=== PATIENT | female | born 1995 | race African-American/Black ===

== ENCOUNTER 2024-07-26 16:48 | Inpatient (IN) | payer MEDICARE, MEDICAID ==
[~2024-07-26] VITALS: Ht 167.6 cm; Wt 102.1 kg
[~2024-07-26 16:48] MED LIST: FERROUS SULFATE; FLUC150T46 PO; NITR-87 PO
[2024-07-26 16:50] VITALS: O2SAT 96
[2024-07-26] MEDS: METHYLPREDNISOLONE SOD SUCC 125MG/2ML (ACT-O-VIAL) IV ONE (17:30)
[2024-07-26 18:08] LABS: BASOPHILS % 0.3 % (0.0-2.0); DIFFERENTIAL COMMENT 0; EOSINOPHILS % 0.7 % (0.0-5.0); HEMOGLOBIN. 11.1 g/dL (12.0-16.0); LYMPHOCYTES % 26.7 % (20.0-50.0); MEAN CORPUSCULAR HGB CONC 31.7 g/dL (31.0-37.0); MEAN CORPUSCULAR VOLUME 72.6 fL (81.0-99.0); MEAN PLATELET VOLUME 8.7 fl (7.4-10.4); MONOCYTES % 11.9 % (2.0-8.0); NEUTROPHILS % 60.4 % (40.0-76.0); PLATELET 255 x1000/uL (130-400); RED BLOOD CELL COUNT 4.82 mill/uL (4.2-5.4); RED CELL DISTRIBUTION WIDTH 17.1 % (11.6-14.6)
[2024-07-26 18:17] LABS: CHLORIDE 108 mEq/L (98-107); POTASSIUM 3.6 mEq/L (3.5-5.1); SODIUM 139 mEq/L (136-145)
[2024-07-26 18:18] LABS: CALCIUM 9.6 mg/dL (8.7-10.4); CARBON DIOXIDE 24 mEq/L (21-32)
[2024-07-26 18:23] LABS: CREATININE 0.6 mg/dL (0.6-1.0); GLUCOSE 86 mg/dL (70-105); UREA NITROGEN BLOOD 8 mg/dL (9-23)
[2024-07-26 18:31] LABS: TROPONIN I HIGH SENSITIVITY < 4 ng/L (3.0-34)
[2024-07-26 18:45] LABS: HCG SCREEN NEGATIVE
[2024-07-26] MEDS: ONDANSETRON HCL 4MG/2ML INJ IV ONE (19:03)
[2024-07-26] MEDS: MORPHINE SULFATE 2 MG/ML INJ (NOT FOR IM USE) IV ONE (19:03)
[2024-07-26] MEDS ORDERED: MAGNESIUM/ALUMINUM HYDROXIDE/SIMETHICONE 30ML UDC PO PRN (20:15)
[2024-07-26] MEDS ORDERED: ONDANSETRON HCL 4MG/2ML INJ IV PRN (20:15)
[2024-07-26] MEDS ORDERED: GUAIFENESIN 200MG/10ML SUGAR FREE UDC PO PRN (20:15)
[2024-07-26] MEDS ORDERED: IPRATROPIUM/ALBUTEROL 0.5-3(2.5)MG/3ML NEB HHN PRN (20:15)
[2024-07-26] MEDS ORDERED: CLONIDINE 0.1MG TABLET PO PRN (20:15)
[2024-07-26] MEDS ORDERED: ACETAMINOPHEN 325MG TABLET PO PRN ×2 (20:15)
[2024-07-26 20:46] LABS: IRON 130 ug/dL (50-170)
[2024-07-26 20:49] LABS: TOTAL IRON BINDING CAPACITY 246 ug/dl (250-425)
[2024-07-26 20:52] LABS: FERRITIN 6 ng/mL (10-291); FOLIC ACID (FOLATE) SERUM 11.54 ng/mL (>5.38); VITAMIN B12 SERUM 776 pg/mL (211-911)
[2024-07-26 20:56] LABS: TROPONIN I HIGH SENSITIVITY < 4 ng/L (3.0-34)
[2024-07-26] MEDS ORDERED: METHYLPREDNISOLONE SOD SUCC 125MG/2ML (ACT-O-VIAL) IV SCH (21:00)
[2024-07-26] MEDS: GABAPENTIN 300MG CAPSULE PO SCH (21:32)
[2024-07-26] MEDS: FAMOTIDINE 20MG TABLET PO SCH (21:32)
[2024-07-26] MEDS ORDERED: METHYLPREDNISOLONE IV SCH (22:00)
[2024-07-26] MEDS ORDERED: DEXT 5% IV SCH (22:00)
[2024-07-26] MEDS ORDERED: WATER IV SCH (22:00)
[2024-07-26 22:19] LABS: TROPONIN I HIGH SENSITIVITY < 4 ng/L (3.0-34)
[2024-07-26 22:20] LABS: CREATINE KINASE 52 IU/L (34-145)
[2024-07-26] MEDS: HYDROCODONE/ACETAMINOPHEN 5/325MG TABLET PO PRN (22:38)
[2024-07-26 23:00] VITALS: BP 125/89; PULSE 85; RESP 20; TEMP 36.2512
[2024-07-26] MEDS: CHOLECALCIFEROL (D3) 1000 UNIT TABLET PO SCH (23:48)
[2024-07-27 00:01] VITALS: BP 117/59; PULSE 86; RESP 20; TEMP 36.114; O2SAT 96
[2024-07-27 04:00] VITALS: BP 128/83; PULSE 84; RESP 20; TEMP 36.72516; O2SAT 96
[2024-07-27 06:58] LABS: CLARITY URINE CLOUDY (CLEAR); COLOR URINE YELLOW (YELLOW); GLUCOSE URINE NEGATIVE (NEGATIVE); KETONES URINE TRACE (NEGATIVE); LEUKOCYTE ESTERASE URINE 1+ (NEGATIVE); NITRITE URINE NEGATIVE (NEGATIVE); OCCULT BLOOD URINE NEGATIVE (NEGATIVE); PH URINE 5.5 (4.5-8.0); PROTEIN URINE NEGATIVE (NEGATIVE); SPECIFIC GRAVITY URINE 1.027 (1.005-1.030)
[2024-07-27 07:03] LABS: HEMATOCRIT. 36.9 % (36.0-48.0); HEMOGLOBIN. 11.6 g/dL (12.0-16.0); MEAN CORPUSCULAR HEMOGLOBIN 22.5 pg (28.0-32.0); MEAN CORPUSCULAR HGB CONC 31.4 g/dL (31.0-37.0); MEAN CORPUSCULAR VOLUME 71.7 fL (81.0-99.0); MEAN PLATELET VOLUME 9.2 fl (7.4-10.4); PLATELET 277 x1000/uL (130-400); RED BLOOD CELL COUNT 5.14 mill/uL (4.2-5.4); RED CELL DISTRIBUTION WIDTH 17.6 % (11.6-14.6); WHITE BLOOD COUNT 8.7 x1000/uL (4.5-11.0)
[2024-07-27 07:09] LABS: CREATINE KINASE 48 IU/L (34-145)
[2024-07-27 07:13] LABS: CALCIUM 10.1 mg/dL (8.7-10.4); CHLORIDE 108 mEq/L (98-107); POTASSIUM 4.3 mEq/L (3.5-5.1); SODIUM 138 mEq/L (136-145)
[2024-07-27 07:14] LABS: CARBON DIOXIDE 20 mEq/L (21-32)
[2024-07-27 07:19] LABS: CREATININE 0.7 mg/dL (0.6-1.0); GLUCOSE 121 mg/dL (70-105); TRIGLYCERIDE 51 mg/dL (0-150); UREA NITROGEN BLOOD 9 mg/dL (9-23)
[2024-07-27 07:20] LABS: *AMPHETAMINES SCREEN URINE NEGATIVE (NEGATIVE); *BARBITURATES SCREEN URINE NEGATIVE (NEGATIVE); *BENZODIAZEPINES SCREEN URINE NEGATIVE (NEGATIVE); *COCAINE SCREEN URINE NEGATIVE (NEGATIVE); METHADONE URINE SCREEN NEGATIVE (NEGATIVE); OPIATES URINE SCREEN PRESUMPTIVE POSITIVE (NEGATIVE)
[2024-07-27 07:20] LABS: LDL CHOLESTEROL 103 mg/dL (5-100)
[2024-07-27 07:21] LABS: CANNABINOID URINE SCREEN NEGATIVE (NEGATIVE); ECSTASY MDMA SCREEN URINE NEGATIVE (NEGATIVE); PHENCYCLIDINE URINE SCREEN NEGATIVE (NEGATIVE)
[2024-07-27 07:21] LABS: CHOLESTEROL 172 mg/dL (<200); HDL CHOLESTEROL 61 mg/dL (>65); T4 FREE 1.06 ng/dL (0.89-1.76)
[2024-07-27 07:22] LABS: ALANINE AMINOTRANSFERASE 8 IU/L (10-49); ALBUMIN 4.7 g/dL (3.2-4.8); ASPARTATE AMINOTRANSFERASE 18 IU/L (<34); BILIRUBIN DIRECT 0.1 mg/dL (<=3.0); BILIRUBIN TOTAL 0.5 mg/dL (0.1-1.0); THYROID STIMULATING HORMONE 0.33 uIU/mL (0.55-4.78)
[2024-07-27 07:32] LABS: BACTERIA URINE TRACE; RBC URINE 0-2 /hpf (0-2); SQUAMOUS EPITHELIAL CELL URINE 1+ /lpf (RARE/1+)
[2024-07-27 07:44] LABS: TROPONIN I HIGH SENSITIVITY < 4 ng/L (3.0-34)
[2024-07-27 07:51] LABS: DIFFERENTIAL COMMENT 1
[2024-07-27 08:00] VITALS: BP 122/82; PULSE 75; RESP 18; TEMP 36.50292; O2SAT 97
[2024-07-27] MEDS: METHYLPREDNISOLONE SOD SUCC 500 MG in DEXT 5% WATER 100 ML IV SCH (09:00)
[2024-07-27] MEDS ORDERED: GADOTERATE MEGLUMINE 5 MMOL/10 ML VIAL IV ONE (09:55)
[2024-07-27] MEDS: FERROUS SULFATE 325MG TABLET PO SCH (10:29)
[2024-07-27] MEDS: MULTIVITAMINS,THER W-MINERALS TABLET PO SCH (10:29)
[2024-07-27] MEDS: DOCUSATE SODIUM 100MG CAPSULE PO PRN (10:57)
[2024-07-27 12:00] VITALS: BP 122/78; PULSE 86; RESP 18; TEMP 36.78072; O2SAT 97
[2024-07-27 16:00] VITALS: BP 123/70; PULSE 71; RESP 18; TEMP 36.55848; O2SAT 98
[2024-07-27 20:00] VITALS: BP 113/69; PULSE 82; RESP 18; TEMP 36.6696
[2024-07-27 20:14] LABS: ANISOCYTOSIS 1+; HYPOCHROMASIA 1+; MICROCYTOSIS 2+; PLATELET ESTIMATE NORMAL
[2024-07-28 01:19] VITALS: BP 121/72; PULSE 74; RESP 19; TEMP 36.16956; O2SAT 96
[2024-07-28 04:00] VITALS: BP 101/55; PULSE 79; RESP 18; TEMP 36.114; O2SAT 97
[2024-07-28 06:21] LABS: CARBON DIOXIDE 24 mEq/L (21-32); CHLORIDE 110 mEq/L (98-107); SODIUM 139 mEq/L (136-145)
[2024-07-28 06:22] LABS: CALCIUM 9.6 mg/dL (8.7-10.4)
[2024-07-28 06:27] LABS: CREATININE 0.6 mg/dL (0.6-1.0); GLUCOSE 146 mg/dL (70-105); UREA NITROGEN BLOOD 9 mg/dL (9-23)
[2024-07-28 06:55] LABS: HEMATOCRIT 35.4 % (36.0-48.0); HEMOGLOBIN 11.1 g/dL (12.0-16.0); MEAN CORPUSCULAR HEMOGLOBIN 22.7 pg (28.0-32.0); MEAN CORPUSCULAR HGB CONC 31.3 g/dL (31.0-37.0); MEAN CORPUSCULAR VOLUME 72.7 fL (81.0-99.0); PLATELET 281 x1000/uL (130-400); RED BLOOD CELL COUNT 4.87 mill/uL (4.2-5.4); RED CELL DISTRIBUTION WIDTH 17.4 % (11.6-14.6); WHITE BLOOD COUNT 16.8 x1000/uL (4.5-11.0)
[2024-07-28 08:00] VITALS: BP 120/60; PULSE 87; RESP 17; TEMP 36.61404; O2SAT 95
[2024-07-28 12:00] VITALS: BP 113/77; PULSE 76; RESP 18; TEMP 36.50292; O2SAT 98
[2024-07-28 16:00] VITALS: BP 114/72; PULSE 87; RESP 18; TEMP 36.89184; O2SAT 97
[2024-07-28 20:00] VITALS: BP 115/56; PULSE 88; RESP 20; TEMP 36.28068; O2SAT 97
[2024-07-29] VITALS: BP 113/57; PULSE 62; RESP 20; TEMP 36.33624; O2SAT 96
[2024-07-29 04:00] VITALS: BP 107/88; PULSE 66; RESP 20; TEMP 36.114; O2SAT 97
[2024-07-29 08:00] VITALS: BP 127/70; PULSE 70; RESP 17; TEMP 36.72516; O2SAT 95
[2024-07-29 12:00] VITALS: BP 126/65; PULSE 75; RESP 20; TEMP 36.28068; O2SAT 96
[2024-07-29] MEDS: FAMOTIDINE 20MG TABLET PO SCH (12:59)
[2024-07-29 16:00] VITALS: BP 153/84; PULSE 86; RESP 20; TEMP 35.78064; O2SAT 98
[2024-07-29] MEDS ORDERED: GABA-532 PO (16:10)
[2024-07-29] MEDS ORDERED: FERR-63 PO (16:10)
[2024-07-29] MEDS ORDERED: CHOL-36 PO (16:10)
[2024-07-29 18:36] LABS: HEMATOCRIT 38.4 % (36.0-48.0); MEAN CORPUSCULAR HEMOGLOBIN 23.3 pg (28.0-32.0); MEAN CORPUSCULAR HGB CONC 31.4 g/dL (31.0-37.0); MEAN CORPUSCULAR VOLUME 74.4 fL (81.0-99.0); PLATELET 284 x1000/uL (130-400); RED BLOOD CELL COUNT 5.16 mill/uL (4.2-5.4); RED CELL DISTRIBUTION WIDTH 17.7 % (11.6-14.6); WHITE BLOOD COUNT 14.7 x1000/uL (4.5-11.0)
[2024-07-29 18:52] LABS: CHLORIDE 107 mEq/L (98-107); POTASSIUM 3.5 mEq/L (3.5-5.1); SODIUM 138 mEq/L (136-145)
[2024-07-29 18:53] LABS: CALCIUM 9.8 mg/dL (8.7-10.4); CARBON DIOXIDE 25 mEq/L (21-32)
[2024-07-29 18:58] LABS: CREATININE 0.7 mg/dL (0.6-1.0); GLUCOSE 104 mg/dL (70-105); UREA NITROGEN BLOOD 10 mg/dL (9-23)
[2024-07-29 20:00] VITALS: BP 104/52; PULSE 84; RESP 18; TEMP 36.55848; O2SAT 98
[2024-07-30 04:00] VITALS: BP 137/52; PULSE 69; RESP 16; TEMP 36.72516; O2SAT 97
[2024-07-30 08:00] VITALS: BP 129/79; PULSE 85; RESP 18; TEMP 37.00296; O2SAT 97
[2024-07-30] MEDS ORDERED: METH4TAB95 MT ×2 (09:45→09:46)
[2024-07-30 12:00] VITALS: BP 125/68; PULSE 80; RESP 18; TEMP 36.78072; O2SAT 97
== END 2024-07-30 15:45 | disposition home health service (06) | DRG 59 ==
LOC: ER 16:48 → EDBEDREQ 17:28 → 8WST 18:53 → EDBEDREQ 18:55 → 6EST 07-29 11:30
PROVIDERS: ADMIT Internal Medicine; ATTEND Internal Medicine
DX: G35 Multiple sclerosis (principal); H46.13 Retrobulbar neuritis, bilateral; Z68.36 Body mass index [BMI] 36.0-36.9, adult; H54.62 Unqualified visual loss, left eye, normal vision right eye; D57.1 Sickle-cell disease without crisis; D50.9 Iron deficiency anemia, unspecified; E66.9 Obesity, unspecified; R32 Unspecified urinary incontinence
CPT/HCPCS: 36415; 70553; 71045; 72156; 80048; 80061; 80076; 80305; 81003; 82550; 82607; 82728; 82746; 83540; 83550; 83735; 83880; 84439; 84443; 84481; 84484; 84703; 85025; 85027; 85379; 85651; 93005; 97161; 97165; 99285; A9577; J2270; J2405; J2919; J2930; J7060